=== PATIENT | male | born 1970 | race African-American/Black ===

== ENCOUNTER 2016-07-02 22:56 | Inpatient (IN) | payer MEDICAID ==
--- NOTE | 2016-07-03 00:40 | EDPRACDOC ---
- General Information Information Source: Patient - History of Present Illness Onset: 2 days <Sergio Simmons - Last Filed: 07/03/16 00:39> - General Information Information Source: Patient - History of Present Illness HPI: pt reports headache, htn. has been out of bpmeds for 6-7 mos. Highest Known BP COW PUNCHER: Unknown Symptoms: Reports: Severe Circumstances: Reports: Ran Out of Medication Relevent History of: Reports: Hypertension Hypertension Treatment: Reports: Noncompliant Recent Use of: Reports: Other (etoh) Associated Signs and Symptoms: Reports: Headache, Other (LUE paresthesias, chest pain) <Hany Thomason - Last Filed: 07/03/16 03:36> - General Information Chief Complaint: Blood Pressure (Problems) Stated Complaint: HEADACHE, LT ANKLE SWELLING Home Medications: Home Medications Amlodipine [Norvasc] 10 mg PO DAILY #30 tab 05/31/15 Aspirin 325 mg PO DAILYWM #30 tablet 05/31/15 Hydrochlorothiazide 25 mg PO QAM #30 tablet 05/31/15 Labetalol HCl [Trandate] 400 mg PO BID #120 tablet 05/31/15 Nicotine [Nicoderm] 14 mg TOP Q24H #30 pat 05/31/15 Oxycodone HCl/Acetaminophen [Percocet 5-325 mg Tablet] 2 tab PO Q6H PRN #10 tablet 05/31/15 Valsartan [Diovan] 320 mg PO DAILY #30 tablet 05/31/15 Varenicline [Chantix] 1 mg PO BID #60 tablet 05/31/15 Allergies/Adverse Reactions: Allergies Allergy/AdvReac Type Severity Reaction Status Date / Time lisinopril Allergy Severe Angioedema* Verified 07/02/16 23:32 ED Past Medical History - Patient Medical History Cardiac History: Reports: Hypertension Psychological History: Denies: Depression, Substance Use Disorder Surgical History: Reports: Other (Right lower leg tae placement.) - Family Medical History Reports: Hypertension. Denies: Diabetes, Cancer, Stroke, Cardiac Disorders - Social Medical History Smoking Status: Heavy tobacco smoker (5 or more cigarettes/day or daily pipe/ cigar) Social History: Denies: Substance Use Disorder <Sergio Simmons - Last Filed: 07/03/16 00:39> - History Reviewed Yes Nurses notes reviewed and agree except as marked <Hany Thomason - Last Filed: 07/03/16 03:36> EDM Review of Systems - Review of Systems ROS Negative Except as Marked: Yes All systems reviewed and were negative except as marked <Hany Thomason - Last Filed: 07/03/16 03:36> - Physical Exam Last recorded Vital Signs: Last Vital Signs Temp 98.3 F 07/02/16 23:12 Pulse 102 07/03/16 00:00 Resp 20 07/03/16 00:00 BP 192/132 H 07/03/16 00:00 Pulse Ox 96 07/03/16 00:00 Oxygen Pulse Oxygen Saturation 96 O2 Device Room Air Oxygen Flow Rate Fraction of Inspired Oxygen ( FIO2) <Sergio Simmons - Last Filed: 07/03/16 00:39> - Physical Exam Constitutional: Alert (Awake), No apparent distress Oriented to: Time, Person, Place Last recorded Vital Signs: Last Vital Signs Temp 98.3 F 07/02/16 23:12 Pulse 102 07/03/16 00:00 Resp 20 07/03/16 00:00 BP 192/132 H 07/03/16 00:00 Pulse Ox 96 07/03/16 00:00 Oxygen Pulse Oxygen Saturation 96 O2 Device Room Air Oxygen Flow Rate Fraction of Inspired Oxygen ( FIO2) - HEENT Head: Normal ( normocephalic) Eye Exam: Normal (PERRL, EOMI, Sclera white), Other (no papilledema) Oropharynx: Normal (Pharynx:Moist without exudate,Gums-no swelling) Tympanic Membrane: Normal ENT EAC: Normal TMJ: Normal Nose: No Symptoms Reported (septum midline) Neck: Normal (FROM, trachea at midline) - Respiratory/Cardiovascular Respiratory: Normal - CTA (BBS clear to auscultation without adventitious sounds ) Cardiovascular: Normal (RRR without murmur, gallop or rub) - GI Auscultation: Normal (NABS) Palpation: Normal (Soft,No rebound or guarding, non distended) Tenderness: Non tender Reeder's Sign: Negative - Musculoskeletal Back: Normal (Non-Tender) Extremities: Other (swelling and postoperative wound of the LLE. no sq crepitus. ) - Integumentary Skin: Warm, Dry, Other (erythema of the LLE) Lymphatics: Normal (no adenopathy) - Neurologic Memory Impaired: Normal Motor Function: Normal (Normal tone, Pulses 2+ No cyanosis or edema, FROM) Cranial Nerve: Normal (CN II-X11 intact sensation, strength 5/5) Cerebellar: Normal Mood Description: Normal Perception: Normal <Hany Thomason - Last Filed: 07/03/16 03:36> - Re-evaluation Re-evaluation 1 Re-evaluation Time: 03:31 (states headache is better, bp is still quite high) - Results 07/02/16 23:41 07/02/16 23:41 - EKG EKG #1 -: Yes EKG interpreted by me [place]: Normal Rhythm: ST Block: None Hypertrophy: LVH ST: Ant (elevation, v1-v2. mild depression,II, v5-v6) Comments: abnL ekg w/o overt sign of stemi - Diagnostic Imaging Chest Image interpreted by: Radiologist (mild vasc congestion) Head Image interpreted by: Radiologist (sml vessel wm dz) <Hany Thomason - Last Filed: 07/03/16 03:36> <Sergio Simmons - Last Filed: 07/03/16 00:39> Decision Time to Discharge: 03:33 - Departure Yes I personally saw and evaluated the patient. Disposition: Admit IP To This Hospital Decision to Admit Time: 03:34 Decision to admit date: 07/03/16 Decision to admit: from ED - Physician Consulted Hospitalist Time Called: 03:34 (dr diggs) <Hany Thomason - Last Filed: 07/03/16 03:36> - Departure Condition: Serious Final Diagnosis: Hypertensive urgency Referrals: None,No Provider [Primary Care Provider] - One Week
[2016-07-03] MEDS ORDERED: LABETALOL 20 MG/4 ML SYRINGE IV ONE ×3 (00:53→03:28)
[2016-07-03] MEDS ORDERED: HYDROmorphone 1 MG INJECTION IV ONE (00:56)
[2016-07-03 01:12] LABS: BLOOD UREA NITROGEN 13 MG/DL (9-20); CALCIUM 9.3 MG/DL (8.4-10.2); CALCULATED OSMOLALITY 275 MOs/Kg (270-290); CHLORIDE 105 mEq/L (98-107); GLUCOSE 95 MG/DL (70-99); SODIUM LEVEL 143 mEq/L (137-146)
[2016-07-03 01:14] LABS: AUTOMATED BASOPHIL 0.9 % (0-2); AUTOMATED EOSINOPHIL 1.7 % (0-5); AUTOMATED LYMPH 18.4 % (17-44); AUTOMATED MONOCYTE 8.1 % (3-10); AUTOMATED NEUTROPHIL 70.9 % (45-76); MPV 10.3 fL (7.4-10.4)
--- NOTE | 2016-07-03 02:20 | DIRPT ---
CLINICAL DATA: Intermittent chronic headache and left-sided arm pain. Initial encounter. EXAM: CT HEAD WITHOUT CONTRAST TECHNIQUE: Contiguous axial images were obtained from the base of the skull through the vertex without intravenous contrast. COMPARISON: CT of the head performed 05/18/2013 FINDINGS: There is no evidence of acute infarction, mass lesion, or intra- or extra-axial hemorrhage on CT. Scattered periventricular and subcortical white matter change likely reflects small vessel ischemic microangiopathy. The posterior fossa, including the cerebellum, brainstem and fourth ventricle, is within normal limits. The third and lateral ventricles, and basal ganglia are unremarkable in appearance. The cerebral hemispheres are symmetric in appearance, with normal hernandez-white differentiation. No mass effect or midline shift is seen. There is no evidence of fracture; there is incomplete fusion of the posterior arch of C1. The visualized portions of the orbits are within normal limits. The paranasal sinuses and mastoid air cells are well-aerated. No significant soft tissue abnormalities are seen. IMPRESSION: 1. No acute intracranial pathology seen on CT. 2. Scattered small vessel ischemic microangiopathy. Electronically Signed By: Tonio Thomas M.D. On: 07/03/2016 02:17
--- NOTE | 2016-07-03 02:25 | DIRPT ---
CLINICAL DATA: Left ankle pain and swelling. EXAM: LEFT ANKLE COMPLETE - 3+ VIEW COMPARISON: Multiple prior exams most recently CT 03/16/2015, radiographs 02/23/2014 FINDINGS: Posttraumatic and postsurgical change with sequela of prior distal tibia and fibular fractures and placement and subsequent removal of distal tibial hardware. Osteoarthritis of the ankle joint with joint space narrowing and likely subchondral cysts. 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 No acute fracture or bony destructive change. Mild soft tissue edema is seen. IMPRESSION: Postsurgical and posttraumatic change with osteoarthritis of the ankle joint. No acute bony abnormality is seen. Electronically Signed By: Yi Knapp M.D. On: 07/03/2016 02:22
--- NOTE | 2016-07-03 02:25 | DIRPT ---
CLINICAL DATA: Acute onset of severe headache. High blood pressure. Left arm pain, radiating to the left jaw. Initial encounter. EXAM: CHEST 2 VIEW COMPARISON: Chest radiograph and CTA of the chest performed 05/31/2015 FINDINGS: The lungs are well-aerated. Vascular congestion is noted. There is no evidence of focal opacification, pleural effusion or pneumothorax. The heart is normal in size; the mediastinal contour is within normal limits. No acute osseous abnormalities are seen. IMPRESSION: Vascular congestion noted. Lungs remain grossly clear. Electronically Signed By: Tonio Thomas M.D. On: 07/03/2016 02:22
[2016-07-03] MEDS ORDERED: NITROGLYCERINE 2 % OINTMENT PACK TOP ONE (03:28)
[2016-07-03] MEDS ORDERED: LABETALOL 20 MG/4 ML SYRINGE IV PRN (03:39)
[2016-07-03] MEDS ORDERED: ALBUTEROL 0.083% 3 ML NEB NEB PRN (03:40)
[2016-07-03] MEDS ORDERED: ONDANSETRON HCL 4 MG/2 ML VIAL IV PRN (03:40)
[2016-07-03] MEDS ORDERED: ENOXAPARIN 40 MG/0.4 ML PFS SQ SCH (04:00)
[2016-07-03] MEDS: AMLODIPINE 10 MG TAB PO SCH ×2 (04:22→08:02)
[2016-07-03] MEDS: NICOTINE 14 MG PATCH TOP SCH (04:42)
--- NOTE | 2016-07-03 05:01 | HISTPHYS ---
- Chief Complaint Left arm numbness and tingling - History of Present Illness This is a 45-year-old gentleman with a known history of stage II hypertension [facility]. Patient says that he has been off of his blood pressure medications for about 6 months now, since he was fired from his primary care physician's practice due to lack of follow-up. He says that during that time, he has had intermittent neck pain and stiffness, as well as numbness and tingling in the left arm. This seems to come and go sporadically through the day. He does not take any regular medications, since he does not have a primary care physician and cannot get his prescriptions refilled. Denies any dizziness, blurry vision double vision, fevers, chills when nausea, headache. Here in the emergency department he has been given several rounds of IV labetalol an attempt to control his blood pressure, his systolic blood pressures improved somewhat, but diastolic blood pressures are still elevated above 130 mm Hg. - Medical History Cardiac History: Reports: Hypertension Psychological History: Denies: Depression, Substance Use Disorder - Surgical History Reports: Other (Right lower leg tae placement.) - Medictions/Allergies Allergies lisinopril Allergy (Severe, Verified 07/02/16 23:32) Angioedema* Severe respiratory distress/swelling of airway Home Medications Amlodipine [Norvasc] 10 mg PO DAILY #30 tab 05/31/15 Aspirin 325 mg PO DAILYWM #30 tablet 05/31/15 Hydrochlorothiazide 25 mg PO QAM #30 tablet 05/31/15 Labetalol HCl [Trandate] 400 mg PO BID #120 tablet 05/31/15 Nicotine [Nicoderm] 14 mg TOP Q24H #30 pat 05/31/15 Oxycodone HCl/Acetaminophen [Percocet 5-325 mg Tablet] 2 tab PO Q6H PRN #10 tablet 05/31/15 Valsartan [Diovan] 320 mg PO DAILY #30 tablet 05/31/15 Varenicline [Chantix] 1 mg PO BID #60 tablet 05/31/15 - Family History Reports: Hypertension. Denies: Diabetes, Cancer, Stroke, Cardiac Disorders - Social History Smoking Status: Heavy tobacco smoker (5 or more cigarettes/day or daily pipe/ cigar) Social History: Denies: Substance Use Disorder - Review of Systems Constitutional: No Symptoms Reported (No fever, chills, wt loss/gain, fatigue) Eyes: No Symptoms Reported (No blurry vision, visual changes) Respiratory: No Symptoms Reported (No cough,wheezing or shortness of breath) Cardiovascular: No Symptoms Reported (No Chest pain, palpitations) Gastrointestinal: No Symptoms Reported (No abdominal pain, nausea, vomiting, diarrhea or constipation) Genitourinary: No Symptoms Reported (No dysuria) Musculoskeletal:: No Symptoms Reported (No headache, dizzness, seizures or focal weakness) Integumentary: No Symptoms Reported (No rashes or lesions) Hematologic: No Symptoms Reported (No bleeding or easy bruising) Endocrine: No Symptoms Reported (No polyuria) - Physical Exam Vital Signs: Initial Vitals Temperature 98.3 F 07/02/16 23:12 Pulse Rate 108 07/02/16 23:12 Respiratory Rate 20 07/02/16 23:12 Blood Pressure 222/145 H 07/02/16 23:12 Pulse Oxygen Saturation 94 07/02/16 23:12 Constitutional: Alert (Awake, Fully oriented, well appearing. No apparent distress) Oriented to: Time, Person, Place - HEENT Head: Normal (normocephalic,atraumatic, trachea midline) Eye: Normal (EOMI, Sclera white) Oropharynx: Normal (moist) Nose: No Symptoms Reported (without discharge or bleeding) Respiratory: Normal - CTA (Clear to auscultation bilaterally, no wheezing,rales or rhonchi. No use of accessory muscles) Cardiovascular: Normal (RRR, no murmurs, rubs or gallops) - GI Palpation: Normal (soft, non distended and nontender) - Musculoskeletal Extremities: Normal (normal tone, no cyanosis or edema) - Integumentary Skin: Normal (no rashes or lesions) - Neurologic Cranial Nerve: Normal (CN II-XII intact) Mood Description: Normal (Fully oriented and appropiate affect) - Focused CV Perfusion Exam Vital Signs: Last Vital Signs Temp 98.3 F 07/02/16 23:12 Pulse 90 07/03/16 04:43 Resp 20 07/03/16 04:29 BP 128/92 07/03/16 04:43 Pulse Ox 96 07/03/16 04:29 - Lab Results Laboratory Tests 01/08/1707/02/16 07/02/16 23:41 23:41 23:41 WBC 5.4 Hgb 15.1 INR 1.0 Potassium 3.8 BUN 13 Creatinine 1.20 - Assessment (1) Hypertensive urgency I16.0 - HYPERTENSIVE URGENCY Acute Reason for admission to the hospital, due to noncompliance with medication for his known severe hypertension. He was previously on amlodipine, losartan and hydrochlorothiazide. Will restart these medications. Will also add IV labetalol p.r.n. SBP over 170. Anticipate that his blood pressure will return to normal on this regimen, as it has been well controlled previously. (2) Noncompliance with medication regimen Z91.14 - PATIENT'S OTHER NONCOMPLIANCE WITH MEDICATION REGIMEN Acute Patient initially tells me that he was unable to follow up with primary care physicians and missed many appointments due to difficulty with transportation. However, he knows that he can get transportation via Medicaid. (3) Numbness and tingling in left arm R20.0 - ANESTHESIA OF SKIN; R20.2 - PARESTHESIA OF SKIN Acute Due to his severe hypertension. (4) Renal insufficiency N28.9 - DISORDER OF KIDNEY AND URETER, UNSPECIFIED Acute Has a history of renal insufficiency, but renal function is normal this morning. Will check on a daily basis. (5) Tobacco abuse Z72.0 - TOBACCO USE Chronic Must discontinue the abuse and will offer nicotine patch. Discuss smoking cessation 10 min. Would like to try the Chantix to help him quit smoking. Case Care Discussed with: Patient Total Time: 48
[2016-07-03] MEDS: ACETAMINOPHEN 325 MG/TAB TABLET PO PRN ×2 (05:14→14:50)
[2016-07-03 05:38] VITALS: BMI 36.1
[2016-07-03] MEDS ORDERED: Vaccine Screening Complete SCH (06:00)
[2016-07-03] MEDS: LABETALOL 200 MG TAB PO SCH ×2 (08:02→19:58)
[2016-07-03] MEDS: HYDROCHLOROTHIAZIDE 25 MG TAB PO SCH (08:02)
[2016-07-03] MEDS: ASPIRIN 325 MG TAB PO SCH (08:02)
[2016-07-03] MEDS ORDERED: VALSARTAN 160 MG TAB PO SCH (09:00)
[2016-07-03] MEDS ORDERED: AMLODIPINE 10 MG TAB PO SCH ×2 (09:00→22:00)
[2016-07-03] MEDS ORDERED: ENOXAPARIN 60 MG/0.6 ML PFS SQ SCH ×2 (09:00→12:00)
--- NOTE | 2016-07-03 13:50 | GENMEDPROG ---
Chief Complaint: hypertensive urgency, medical non-compliance, headache, tobacco abuse Notes Reviewed: Yes Events from last night noted and discussed with Clinical Staff Current Medication List: Reviewed Currently: Reports: Tobacco Use/Hx, Alcohol Hx, Other (headache). Denies: TELLES, SOB - Physical Examination Vital Signs and I&O: Last Vital Signs Temp 98.3 F 07/03/16 10:00 Pulse 83 07/03/16 10:00 Resp 20 07/03/16 07:50 BP 158/104 H 07/03/16 10:00 Pulse Ox 96 07/03/16 04:29 Oxygen Pulse Oxygen Saturation 96 O2 Device Room Air Oxygen Flow Rate Fraction of Inspired Oxygen ( FIO2) Intake & Output 06/30/16 07/01/16 07/02/16 07/03/16 23:59 23:59 23:59 23:59 Intake Total 960 Output Total 600 Balance 360 Patient's weight 117.526 kg General: Alert, Oriented x3, Cooperative, No acute distress HEENT: Normal, PERRLA, EOMI, Anicteric Sclera, Mucous membr. moist/pink Neck: Non-tender, Full range of motion, Normal Trachea alignment, Normal inspection, No Masses palpable Lymphatics: Normal Respiratory: Normal - CTA (Clear to auscultation bilaterally, no wheezing,rales or rhonchi. No use of accessory muscles) Cardiovascular: Regular rate and rhythm, Normal S1, No Gallops,Rubs/Murmurs, Normal S2, Good Pedal Pulses. negative: LE Edema GI: Normal bowel sounds, Soft, Non tender, No hepatospenomegaly, No masses Extremities/Musculoskeletal: Normal pulses, FROM, Motor 5/5 throughout Skin: Warm,Dry and Intact Neurological: Normal Steady Gait, Normal speech, Strength at 5/5 X4 ext Psych/Mental Status: Appropriate, Normal Affect, Cooperative Lab/DI/Studies Reviewed: Laboratory Tests 07/02/16 07/02/16 07/02/16 23:41 23:41 23:41 WBC 5.4 Hgb 15.1 Hct 44.6 Plt Count 183 PT 10.4 INR 1.0 Sodium 143 Potassium 3.8 Chloride 105 Carbon Dioxide 23 Anion Gap 19 H BUN 13 Creatinine 1.20 Estimated GFR (MDRD) > 60 Glucose 95 Calculated Osmolality 275 Troponin I 0.04 - Assessment (1) Hypertensive urgency Acute I16.0 - HYPERTENSIVE URGENCY Comment/Plan: Reason for admission to the hospital, due to noncompliance with medication for his known severe hypertension. He was previously on amlodipine, losartan and hydrochlorothiazide. He developed angioedema to benazepril, and does not tolerate ARBs. Will also add IV labetalol p.r.n. SBP over 170. Anticipate that his blood pressure will return to normal on this regimen, as it has been well controlled previously. (2) Noncompliance with medication regimen Acute Z91.14 - PATIENT'S OTHER NONCOMPLIANCE WITH MEDICATION REGIMEN Comment /Plan: Patient initially tells me that he was unable to follow up with primary care physicians and missed many appointments due to difficulty with transportation. However, he knows that he can get transportation via Medicaid. (3) AYAZ inhibitor-aggravated angioedema Acute T46.4X1A - POISONING BY [id number] INHIBITORS, ACC, INIT; T78.3XXA - ANGIONEUROTIC EDEMA, INITIAL ENCOUNTER Qualifiers: Encounter type: subsequent encounter Injury intent: accidental or unintentional Qualified Code(s): T46.4X1D - Poisoning by angiotensin- converting-enzyme inhibitors, accidental (unintentional), subsequent encounter Comment/Plan: Avoid Ayaz inhibitors & ARBs including benazepril which has been discontinued today. will Use beta-marjorie/alpha-marjorie, centrally acting agents, and calcium-channel blockers. Nitrates work well in Afro-americans as do diuretics. (4) Headache above the eye region Acute R51 - HEADACHE Comment/Plan: Tylenol 650 mg PRN for TABOR (5) Tobacco abuse Chronic Z72.0 - TOBACCO USE Comment/Plan: Strongly encouraged complete smoking cessation and will offer nicotine patch. Discussed smoking cessation x10 min. Would like to try the Chantix to help him quit smoking.
[2016-07-03] MEDS: MORPHINE 2 MG/ML INJECTION IV PRN ×2 (18:07→22:43)
[2016-07-03] MEDS ORDERED: TEMAZEPAM 15 MG CAP PO PRN (22:22)
[2016-07-04] MEDS: MORPHINE 2 MG/ML INJECTION IV PRN ×2 (02:41→08:05)
[2016-07-04] MEDS: NICOTINE 14 MG PATCH TOP SCH (03:51)
[2016-07-04] MEDS ORDERED: ISOSORBIDE MONONITRATE 30 MG TAB PO SCH (06:00)
[2016-07-04 06:07] VITALS: TEMP 98.7
[2016-07-04] MEDS ORDERED: PNEUMOCOCCAL 0.5 ML VIAL IM ONE (08:00)
[2016-07-04] MEDS ORDERED: FLU VACCINE (Afluria) 0.5 ML DOSE IM ONE (08:00)
[2016-07-04] MEDS: ASPIRIN 325 MG TAB PO SCH (08:03)
[2016-07-04] MEDS: HYDROCHLOROTHIAZIDE 25 MG TAB PO SCH (08:03)
[2016-07-04] MEDS: LABETALOL 200 MG TAB PO SCH (08:03)
--- NOTE | 2016-07-04 08:16 | PCM.DCS92 ---
- Final/Secondary Discharge Diagnosis (1) Hypertensive urgency Acute I16.0 - HYPERTENSIVE URGENCY Present on Admission: Yes Comment: Reason for admission to the hospital, due to noncompliance with medication for his known severe hypertension. He was previously on amlodipine, losartan and hydrochlorothiazide. He developed angioedema to benazepril, and does not tolerate ARBs. Started patient on labetalol, with HCTZ. Added Imdur in AM. Anticipate that his blood pressure will return to normal on this regimen , as it has been well controlled previously. (2) Noncompliance with medication regimen Acute Z91.14 - PATIENT'S OTHER NONCOMPLIANCE WITH MEDICATION REGIMEN Present on Admission: Yes Comment: Patient initially tells me that he was unable to follow up with primary care physicians and missed many appointments due to difficulty with transportation. However, he knows that he can get transportation via Medicaid. (3) AYAZ inhibitor-aggravated angioedema Acute T46.4X1A - POISONING BY [id number] INHIBITORS, ACC, INIT; T78.3XXA - ANGIONEUROTIC EDEMA, INITIAL ENCOUNTER Present on Admission: Yes subsequent encounter accidental or unintentional T46.4X1D - Poisoning by xbeoiftamnx-oafendptot-wiyeru inhibitors, accidental (unintentional), subsequent encounter Comment: Avoid Ayaz inhibitors & ARBs including benazepril which has been discontinued today. will Use beta-marjorie/alpha-marjorie, centrally acting agents, and calcium-channel blockers. Nitrates work well in Afro-americans as do diuretics. (4) Headache above the eye region Acute R51 - HEADACHE Present on Admission: Yes Comment: Tylenol 650 mg PRN for TABOR (5) Tobacco abuse Chronic Z72.0 - TOBACCO USE Present on Admission: Yes Comment: Strongly encouraged complete smoking cessation and will offer nicotine patch. Discussed smoking cessation x10 min. Would like to try the Chantix to help him quit smoking. Discharge Disposition: Home Discharge Condition: Improved Cognitive Discharge Status: Unimpaired Fuctional Discharge Status: Independent Physician Follow up/Referrals: [facility] [Provider Group] - One Week New Prescriptions: Amlodipine [Norvasc] 10 mg PO HS #30 tab Aspirin [Aspirin EC] 325 mg PO DAILY #30 tablet. Isosorbide Mononitrate [Imdur] 30 mg PO DAILY@0600 #30 tablet Labetalol HCl [Trandate] 400 mg PO BID #120 tablet Discharge Home Medication List Hydrochlorothiazide 25 mg PO QAM #30 tablet 05/31/15 [Rx Confirmed 05/31/15 Last Taken 05/31/15 09:20] Nicotine [Nicoderm] 14 mg TOP Q24H #30 pat 05/31/15 [Rx Confirmed 05/31/15 Last Taken 05/30/15 22:52] Amlodipine [Norvasc] 10 mg PO HS #30 tab 07/04/16 [Rx Last Taken Unknown] Aspirin [Aspirin EC] 325 mg PO DAILY #30 tablet. 07/04/16 [Rx Last Taken Unknown] Isosorbide Mononitrate [Imdur] 30 mg PO DAILY@0600 #30 tablet 07/04/16 [Rx Last Taken Unknown] Labetalol HCl [Trandate] 400 mg PO BID #120 tablet 07/04/16 [Rx Last Taken Unknown] O2 Device: Room Air Diet at Discharge: Heart Healthy, Low Salt Activity: As Tolerated Call Office For: Worsening Symptoms Discontinue use of:: Alcohol, All Illegal Substances, All Types of Tobacco - DC Summary Notes Hospital Course Note:: Discharge summary on patient named TESFAYE LORENZO admitted to [facility] on 07/03/16 by Ben Akhtar MD. Date of discharge is [07/04/15]. This is a 45-year-old gentleman with a known history of stage II hypertension was being admitted to the hospital tonight due to hypertensive urgency. Patient says that he has been off of his blood pressure medications for about 6 months now, since he was fired from his primary care physician's practice due to failure to keep his appointments. His BP on presentation was 222 /145. He says that during that time, he has had intermittent neck pain and stiffness, as well as numbness and tingling in the left arm. This seems to come and go sporadically through the day. He does not take any regular medications, since he does not have a primary care physician and cannot get his prescriptions refilled. Denies any dizziness, blurry vision double vision, fevers, chills when nausea, headache. Here in the emergency department he has been given several rounds of IV labetalol an attempt to control his blood pressure, his systolic blood pressures improved somewhat, but diastolic blood pressures are still elevated above 130 mm Hg. He was initially started back on his most recent home regimen, but started to complain of his lips swelling and feeling numb. He was on Valsartan, so we advised him to avoid both AYAZ inhibitors and ARB's. He was placed back on labetalol 400 mg BID, HCTZ 25 mg daily, and isosorbide was added at a starting dose of 30 mg q AM. With these measures, his blood pressure has come down to 143/95, which is adequate to be discharged from the hospital, and a significant improvement for one-two days. We will refer him to the [facility] clinic for follow- up at this time and encourage him to be more compliant. Code: 13279 (>30min.) - Physical Exam Vital Signs: Last Vital Signs Temp 98.7 F 07/04/16 06:00 Pulse 92 07/04/16 08:00 Resp 18 07/04/16 06:00 BP 160/100 07/04/16 08:00 Pulse Ox 98 07/04/16 06:00 Oxygen Pulse Oxygen Saturation 98 O2 Device Room Air Oxygen Flow Rate Fraction of Inspired Oxygen ( FIO2) Constitutional: No apparent distress, Alert (Awake, Fully oriented, well appearing. No apparent distress) Oriented to: Time, Person, Place - HEENT Head: Normal (normocephalic,atraumatic, trachea midline) Eye: Normal (EOMI, Sclera white) Oropharynx: Normal (moist) Tympanic Membrane: Normal Nose: No Symptoms Reported (without discharge or bleeding) - Respiratory/Cardiovascular Respiratory: Normal - CTA (Clear to auscultation bilaterally, no wheezing,rales or rhonchi. No use of accessory muscles) Cardiovascular: Normal - GI Auscultation: Normal Palpation: Normal (soft, non distended and nontender) Tenderness: Non tender Rectal Exam: Deferred - Musculoskeletal Back: Normal Extremities: Normal (normal tone, no cyanosis or edema) - Integumentary Skin: Warm, Dry Lymphatics: Normal - Neurologic Memory Impaired: Normal Motor Function: Normal Cranial Nerve: Normal Cerebellar: Normal Mood Description: Normal (Fully oriented and appropiate affect) Thought: Coherent Perception: Normal
[2016-07-04 13:11] VITALS: PULSE 90
[2016-07-04 13:22] VITALS: BP 154/94
== END 2016-07-04 13:42 | disposition home or self-care (01) | DRG 305 ==
LOC: ED 22:56 → ICU 07-03 03:40
PROVIDERS: ADMIT Internal Medicine; ATTEND Family Medicine
DX: I16.0 Hypertensive urgency (principal); T78.3XXA Angioneurotic edema, initial encounter; F17.210 Nicotine dependence, cigarettes, uncomplicated; I10 Essential (primary) hypertension; Z91.14 Patient's other noncompliance with medication regimen; T46.4X1A Poisoning by angiotensin-converting-enzyme inhibitors, accidental (unintentional), initial encounter; R51 Headache; Z88.8 Allergy status to other drugs, medicaments and biological substances; Z79.899 Other long term (current) drug therapy; Z79.82 Long term (current) use of aspirin; N28.9 Disorder of kidney and ureter, unspecified
CPT/HCPCS: 36415; 70450; 71020; 80048; 80320; 84484; 85025; 85610; 87641; 90656; 90732; 96372; 96374; 96375; 96376; 99284; 99406; J1170; J1650; J2270; J3490